=== PATIENT | male | born 1940 | race Hispanic/Latino ===

== ENCOUNTER 2019-04-08 05:58 | Day surgery (SDC) | payer MEDICARE ==
[2019-04-08] MEDS ORDERED: SODIUM CHLORIDE 0.9% 500 ML 500 ML IV SCH (07:00)
[2019-04-08 07:24] LABS: Basophils % (Auto) 0.8 % (0.0-1.8); Eosinophils # (Auto) 0.1 K/mm3 (0.0-0.4); Eosinophils % (Auto) 2.4 % (0.0-4.3); Hematocrit 40.6 % (35.5-45.6); Hemoglobin 13.9 gm/dl (11.8-15.2); Lymphocytes # (Auto) 0.9 K/mm3 (1.2-5.4); Lymphocytes % (Auto) 15.4 % (13.4-35.0); Mean Corpuscular HGB Conc 34 % (32-34); Mean Corpuscular Volume 92 fl (84-94); Monocytes # (Auto) 0.7 K/mm3 (0.0-0.8); Monocytes % (Auto) 12.5 % (0.0-7.3); Platelet Count 188 K/mm3 (140-440); Red Blood Count 4.43 M/mm3 (3.65-5.03)
[2019-04-08 07:36] LABS: INR 0.91 (0.87-1.13)
[2019-04-08 07:38] LABS: Calcium 9.1 mg/dL (8.4-10.2); Hemolysis Index 80
[2019-04-08 07:40] LABS: Partial Thromboplastin Time 28.3 Sec. (24.2-36.6)
[2019-04-08 07:56] LABS: BUN/Creatinine Ratio 23; Blood Urea Nitrogen 16 mg/dL (9-20)
[2019-04-08] MEDS ORDERED: HEPARIN/NS 5000 UNIT/500ML 1,000 ML IR ONE (08:31)
[2019-04-08] MEDS ORDERED: HEPARIN 10,000 UNITS/10 ML VIAL ONE (08:31)
[2019-04-08] MEDS ORDERED: LIDOCAINE (2%) 20 MG/1 ML VIAL 20 ML MDV INFILTRATI ONE (08:31)
[2019-04-08] MEDS ORDERED: MIDAZOLAM 2 MG/2 ML INJ ONE (08:32)
[2019-04-08] MEDS ORDERED: fentaNYL 100 MCG/2 ML INJ ONE (08:32)
--- NOTE | 2019-04-08 14:29 | Cardiac Catherization Report ---
CARDIAC CATHETERIZATION REFERRING PHYSICIAN: Feliz Evans MD INDICATION FOR PROCEDURE: The patient is a pleasant 79-year-old gentleman with a history of worsening chest pain, very typical symptoms, history of PCI and bypass, abnormal stress test, known vasculopathy, referred for left heart catheterization. Risks, benefits, and potential alternatives explained at length prior to obtaining informed consent. PROCEDURE IN DETAIL: The patient was brought to catheterization lab in a postabsorptive state, prepped and draped in sterile fashion. An 8 mL of 2% lidocaine used to anesthetize the right groin. A standard 6-Mongolian sheath used to cannulate the right common femoral artery via modified Seldinger technique. All exchanges performed to exchange a J-tip guidewire. JL3.5 catheter was used to engage the left main. No dampening or ventricularization. Cineangiography performed in multiple projections. JR4 catheter used to cross the aortic valve under fluoroscopic guidance. Left ventriculography performed in 30 [place]OR and 30 [place] projections via hand injections, catheter flushed. Manual pullback performed with continuous pressure monitoring. Catheter used to engage the right coronary. No dampening or ventricularization. Cineangiography performed in all projections. Next, catheter used to engage the SVG graft, which is occluded. Angiography performed. Next, catheter used to engage the left subclavian significant tortuosity due to difficulties performed a third order mid left subclavian angiogram, selective angiogram. Next, exchanged over a long wire for an IM catheter. Selective SANTANA angiography was performed. Next, catheter was removed and no gradient was noted. We used a pigtail catheter for the [place] projection of root aortography with a power injector. Next, catheter removed from the body. Sheath removed. Manual pressure used to achieve hemostasis. There were no immediate complications. The patient tolerated the procedure well. DATA: Patient remained in sinus rhythm throughout. I directly supervised the administration of moderate sedation from 9:10 a.m. to 10:00 a.m. with Versed and fentanyl. Aortic pressure is 170/70, LV pressure is 170, LVEDP of 25 mmHg. Left ventriculography reveals preserved left ventricular systolic performance, estimated ejection fraction of 50-55%. No evidence of significant mitral regurgitation. No evidence of aortic stenosis. CORONARY ANATOMY: This is a right dominant system. Right coronary is a moderate sized vessel, courses AV groove. Stent in the proximal right coronary is widely patent. SVG graft likely going to LAD is occluded, as SVG was apparently performed in the late 80s. Selective third order mid left subclavian angiography performed reveals patent left subclavian. No significant disease ____ gradient. Selective SANATNA angiography reveals patent SANTANA, not currently being used, but good for bypass. The left main without significant disease, trifurcates left anterior descending, ramus intermedius, and left circumflex. Left circumflex is small. No significant disease. Ramus intermedius, courses the medial aspect to lateral wall. No significant disease. LAD with a chronic total occlusion in the proximal segment with what appears to be left to left collaterals. No significant right to left collaterals are identified. Root aortography reveals normal contour, no evidence of dissection, no evidence of patent aortocoronary conduit. No aortic insufficiency. CONCLUSIONS: 1. Severe coronary artery disease as aforementioned. 2. A 100% chronic total occlusion of proximal LAD with extensive left to left collaterals. 3. Patent left main, ramus intermedius, and left circumflex. 4. Patent stent in the proximal segment. 5. Root aortography reveals no evidence of dissection, penetrating aortic ulcer, or aortic insufficiency, nor patent aortocoronary conduit. 6. Patent left subclavian. 7. Patent left internal mammary artery. At this point, given his refractory symptoms of angina to medications, likely culprit is his chronic total occlusion of the proximal LAD. It does not appear to be a good candidate for a catheter based approach. Consider robotic SANTANA to LAD. We will transfer to [facility] for the same. The patient is clinically stable at this point, we discussed with Dr. Geiger, standard groin care. Results of procedure discussed with the patient and family. Further plans ____ on standard groin care. JOB# [id number] [email or web address]
--- NOTE | 2019-04-08 14:43 | Short Stay Summary ---
Short Stay Documentation Date of service: 04/08/19 - History H&P: obtained from office - Allergies and Medications Current Medications: Allergies Penicillins Allergy (Verified 10/30/14 08:38) Hives Home Medications Medication Instructions Recorded Confirmed Last Taken Type Aspirin 325 mg PO ONCE 10/30/14 04/08/19 04/08/19 History Baking Soda 0.5 tsp PO BID 10/30/14 04/08/19 04/07/19 History Calamarine Oil 1,200 mg PO DAILY 10/30/14 04/08/19 04/07/19 History Calcium Carb & Citrate/Vit D3 1 each PO DAILY 10/30/14 04/08/19 04/07/19 History [Calcium + Vitamin D3 Caplet] Cyanocobalamin [Vitamin B-12] 1,000 mcg IM QWEEK 10/30/14 04/08/19 04/07/19 History Lisinopril/Hydrochlorothiazide 1 each PO DAILY 10/30/14 04/08/19 04/07/19 History [Zestoretic 20-12.5 mg] Metoprolol [Lopressor TAB] 50 mg PO BID 10/30/14 04/08/19 04/07/19 History Montelukast [Singulair] 10 mg PO QPM 10/30/14 04/08/19 04/07/19 History Niacin (Nf) 500 mg PO QHS 10/30/14 04/08/19 04/07/19 History Ubidecarenone [Coq-10] 100 mg PO DAILY 10/30/14 04/08/19 04/07/19 History Clopidogrel [Plavix] 75 mg PO QDAY #30 tablet 11/06/14 04/08/19 04/08/19 Rx Furosemide [Lasix TAB] 20 mg PO DAILY 04/08/19 04/08/19 04/07/19 History Tamsulosin [Flomax] 0.4 mg PO QDAY 04/08/19 04/08/19 04/07/19 History Active Medications Sodium Chloride (Nacl 0.9% 500 Ml) 500 mls @ 50 mls/hr IV DIRECT RON Stop: 04/08/19 16:59 Last Admin: 04/08/19 08:00 Dose: 50 mls/hr Documented by: - Brief post op/procedure progress note Date of procedure: 04/08/19 Pre-op diagnosis: CAD Post-op diagnosis: same Procedure: LHC - see dictated cath report Anesthesia: local Estimated blood loss: none Condition: stable - Hospital course Hospital course: pt tx to [place] - Disposition Condition at discharge: Good Disposition: [id number] ANOTHER TYPE [facility] - Discharge Diagnoses (1) CAD (coronary artery disease) Status: Chronic (2) History of coronary artery bypass graft Status: Chronic (3) HTN (hypertension) Status: Chronic (4) Hyperlipidemia Status: Chronic (5) PAD (peripheral artery disease) Status: Chronic (6) History of CVA (cerebrovascular accident) Status: Chronic Short Stay Discharge Plan Diet: low fat, low cholesterol, low salt Wound: open to air, keep clean and dry, per your surgeon's advice Follow up with: JENNIFER GARZA MD [Primary Care Provider] - 7 Days
[2019-04-08 17:33] VITALS: BP 172/65
== END 2019-04-08 17:48 | disposition other institution (70) ==
LOC: CATHLABREC 05:58
PROVIDERS: ATTEND Internal Medicine
DX: R07.89 Other chest pain (principal); R94.39 Abnormal result of other cardiovascular function study; I25.10 Atherosclerotic heart disease of native coronary artery without angina pectoris; I65.29 Occlusion and stenosis of unspecified carotid artery; I10 Essential (primary) hypertension; E78.5 Hyperlipidemia, unspecified; I73.9 Peripheral vascular disease, unspecified; K21.9 Gastro-esophageal reflux disease without esophagitis; J44.9 Chronic obstructive pulmonary disease, unspecified; E78.00 Pure hypercholesterolemia, unspecified; Z88.0 Allergy status to penicillin; Z79.899 Other long term (current) drug therapy; Z79.82 Long term (current) use of aspirin; Z87.891 Personal history of nicotine dependence; Z95.1 Presence of aortocoronary bypass graft; Z85.89 Personal history of malignant neoplasm of other organs and systems; Z98.890 Other specified postprocedural states; Z90.49 Acquired absence of other specified parts of digestive tract; Z86.73 Personal history of transient ischemic attack (TIA), and cerebral infarction without residual deficits
CPT/HCPCS: 36415; 80048; 85025; 85610; 85730; 93005; 93010; 93459; 93567; 99156; 99157; C1769; C1894; J1644; J2250; J3010; J7040; Q9967